=== PATIENT | female | born 2000 | race African-American/Black ===

== ENCOUNTER 2019-11-04 18:58 | Observation (INO) | payer BC, SELFPAY ==
--- NOTE | ~2019-11-04 | MR_ITS ---
EXAMINATION: MR abdomen wo con DATE: 11/05/2019 09:45 INDICATION: Right flank and lower abdominal pain during 24th ventricle . TECHNIQUE: Magnetic resonance imaging (MRI) of the abdomen was performed without intravenous contrast . Sequences included axial, sagittal and coronal FS 2D-FIESTA, axial and coronal T2-weighted SS-FSE, axial STIR FSE, sagittal T2-weighted FS SS-FSE, axial dual-echo T1-weighted FSPGR, and axial T1-weigh ceferino LAVA. COMPARISON: None. FINDINGS: No pleural effusion at the posterior sulci. Visualized portions of the upper and spleen are normal. T he gallbladder, pancreas and bilateral adrenal glands are normal. Bilateral kidneys are normal with n o hydronephrosis. The appendix is normal with no periappendiceal inflammatory stranding to suggest ac chilkoot appendicitis. No bowel obstruction. Gravid uterus with anterior placenta which is not low-lying w ith caudal margin 7.6 cm from the internal cervical os. Cervical length measures 3.4 cm which is norm al. Fetus which is not diagnostically evaluated but appears normal in vertex position. The partially decompressed bladder is normal. No free intraperitoneal fluid. No pathologically enlarged abdominal o r pelvic lymphadenopathy. Mild lumbar levocurvature. Bones are otherwise unremarkable with normal mar row signal throughout. Small fat-containing umbilical hernia. IMPRESSION: 1. Normal appendix. No hydronephrosis or other evident acute intra-abdominal/pelvic process. 2. Gravid uterus with fetus in vertex position. 3. Small fat-containing umbilical hernia. Reviewed, dictated and finalized at location A. IMPRESSION: 1. Normal appendix. No hydronephrosis or other evident acute intra-abdominal/pe lvic process. 2. Gravid uterus with fetus in vertex position. 3. Small fat-containing umbilical hernia.
[2019-11-04 19:12] VITALS: BP 135/75; PULSE 106; RESP 18; TEMP 37; O2SAT 100
[2019-11-04 19:26] LABS: Basophils Percent Auto 0.2 % (0.2-1.2); Eosinophils Absolute Auto 0.1 K/mm3 (0-0.3); Eosinophils Percent Auto 0.7 % (0-4.4); Hematocrit 32.9 % (37.0-47.0); Hemoglobin 11.1 g/dL (12.0-15.0); Immature Granulocyte Absolute 0.06 K/mm3 (0.00-0.031); Immature Granulocyte Percent A 0.4 % (0-0.5); Lymphocytes Absolute Auto 2.91 K/mm3 (0.9-3.2); Lymphocytes Percent Auto 20.6 % (18.3-44.2); Mean Corpuscular HGB Conc 33.7 g/dl (32-36); Mean Corpuscular Hemoglobin 29.4 pg (26-34); Mean Platelet Volume 12.2 fl (7.4-10.4); Monocytes Absolute Auto 1.1 K/mm3 (0.1-0.6); Monocytes Percent Auto 7.4 % (2.6-8.5); Neutrophils Percent Auto 70.7 % (45.5-73.1); Platelet Count Result 200 k/mm3 (150-375); Red Blood Count 3.78 M/mm3 (4.2-5.4); Red Cell Distribution Width 13.2 % (11.5-14.5); White Blood Count 14.1 K/mm3 (4.5-10.0)
[2019-11-04 19:37] LABS: Blood Urea Nitrogen 4 mg/dL (7-17); Calcium 8.8 mg/dL (8.4-10.2); Carbon Dioxide 21 mmol/L (22-30); Chloride 107 mmol/L (98-107); Estimated Glomerular Filt Rate > 60; Glucose 106 mg/dL (65-105); Potassium 3.5 mmol/L (3.4-5.0); Sodium 134 mmol/L (137-145)
[2019-11-04 19:40] LABS: Ovalocytes 1+ (NORMAL); Platelet Estimate Adequate (Adequate)
[2019-11-04 19:45] LABS: Add Urine Microscopic? YES; Appearance Urine Cloudy (Clear); Bacteria Urine Trace /hpf; Bilirubin Urine Negative (Negative); Color Urine Yellow (Yellow); Glucose Urine UA Negative (Negative); Ketones Urine Negative (Negative); Leukocyte Esterase Ur 2+ LEU/UL (Negative); Mucus Urine Few /lpf; Nitrate Urine Negative (Negative); Protein Urine 1+ mg/dL (Negative); RBC Urine 0-2 /hpf (0-2); Specific Grav Ur 1.027 (1.001-1.035); Squamous Epithelial Cell Urine Many /hpf (Few)
[2019-11-04 19:46] LABS: Blood Urine Negative (Negative)
[2019-11-04 20:12] LABS: Alanine Aminotransferase 21 U/L (4-35); Albumin Level 3.6 g/dL (3.5-5.1); Alkaline Phosphatase 88 U/L (38-126); Aspartate Amino Transferase 26 U/L (14-36); Bilirubin,Total 0.2 mg/dL (0.2-1.3); Lipase 114 U/L (23-300)
--- NOTE | 2019-11-04 22:24 | PC.NURSE ---
Spoke with OB at 2223 due to Pt being passed 20wks gestation, nurse states someone will be down to assess heart tones.
[2019-11-04 22:44] VITALS: BP 125/75; PULSE 89; RESP 20; O2SAT 100
--- NOTE | 2019-11-04 23:24 | ED.ABDPAIN ---
HPI - Abdominal Pain General Chief Complaint: Abdominal Pain Stated Complaint: right flank pain; 24 wks gestation Time Seen by Provider: 11/04/19 22:53 Source: patient Mode of arrival: ambulatory Limitations: no limitations History of Present Illness HPI narrative: This patient is a 18 year old female who is GA 24 weeks who presents for evaluation of right flank pain. She states she has had intermittent right flank pain x 2 weeks . This morning she developed severe pain to right flank that has been constant. she reports this pain feels different. She took tylenol 1000 mg at 11 am without any relief. She denies nausea, vomiting, fever, chills or urinary complaints. MD elicited complaint: flank pain Related Data Allergies Allergy/AdvReac Type Severity Reaction Status Date / Time No Known Allergies Allergy Verified 11/05/19 00:13 Review of Systems Review of Systems: All systems reviewed & are unremarkable except as noted in HPI and below Constitutional: Constitutional: Denies chills and Denies fever(s) Cardiovascular: Cardiovascular: Denies chest pain Respiratory: Respiratory: Denies cough and Denies dyspnea Gastrointestinal: Gastrointestinal: Denies diarrhea, Denies nausea and Denies vomiting Genitourinary: Genitourinary: Denies hematuria, Denies dysuria and Reports flank pain Musculoskeletal: Musculoskeletal: Denies back pain [facility] Past Medical History Medical History (Updated 11/05/19 @ 05:38 by Anabelle Shafer MD) Patient denies medical problems Surgical History Surgical History (Updated 11/04/19 @ 23:24 by Anabelle Shafer MD) No significant past surgical history Social History Social History Gender identity (if verbalized by the patient): Female Exam Const: General: alert Orientation/consciousness: patient oriented x3 Eyes: EOM: EOMs intact bilaterally Chest: Chest palpation & inspection: normal inspection of the chest Resp: Effort & Inspection: normal respiratory effort and no retractions Auscultation: clear to auscultation bilaterally Cardio: Rate: regular rate Rhythm: regular rhythm Heart sounds: no murmurs GI: GI Palp: Yes Soft to palpation, Yes Tenderness to palpation present (GI) (right lower flank and RLQ), No Guarding due to palpation present (GI) and No Rigid due to palpation Other: gravid : General: Yes no CVA tenderness Back/Spine/Pelvis: Back: no CVA tenderness Skin: Rashes: no rashes Neuro: General: patient oriented x3 and moves all extremities Course Consultations Consultation #1: I spoke with Dr. Fabian who agrees to admit patient to Labor and deliver for evaluation . He agrees with antibiotics for UTI and MRI in am to rule out appy given elevated wbc Date: 11/04/19 Time: 23:45 Vital Signs Vital signs: Vital Signs Temperature 98.6 F 11/04/19 19:12 Pulse Rate 106 H 11/04/19 19:12 Respiratory Rate 18 11/04/19 19:12 Blood Pressure 135/75 11/04/19 19:12 Pulse Oximetry 100 11/04/19 19:12 Temperature 98.6 F 11/04/19 19:12 Pulse Rate 100 11/05/19 02:04 Respiratory Rate 20 11/05/19 02:04 Blood Pressure 122/65 11/05/19 02:04 Pulse Oximetry 95 11/05/19 02:04 MDM - Abdominal Pain Lab Data Attestation: I reviewed the patient's lab results. Result diagrams: 11/04/19 19:19 11/04/19 19:19 Labs: Lab Results 11/04/19 11/04/19 11/04/19 Range/Units 19:19 19:19 19:19 WBC 14.1 H (4.5-10.0) K/mm3 RBC 3.78 L (4.2-5.4) M/mm3 Hgb 11.1 L (12.0-15.0) g/dL Hct 32.9 L (37.0-47.0) % MCV 87.0 (80-100) fl MCH 29.4 (26-34) pg MCHC 33.7 (32-36) g/dl RDW 13.2 (11.5-14.5) % Plt Count 200 (150-375) k/mm3 MPV 12.2 H (7.4-10.4) fl Immature Gran % (Auto) 0.4 (0-0.5) % Neut % (Auto) 70.7 (45.5-73.1) % Lymph % (Auto) 20.6 (18.3-44.2) % [place] % (Auto) 7.4 (2.6-8.5) % Eos % (Auto) 0.7 (0-4.4) % Baso % (Auto) 0.2
[2019-11-04 23:54] VITALS: BP 122/65; PULSE 95; RESP 20; O2SAT 100
[2019-11-05] MEDS: LACTATED RINGERS 1,000 ML 999 ML IV CONT (00:30)
[2019-11-05 00:53] VITALS: BP 129/65; PULSE 90
[2019-11-05 02:04] VITALS: BP 122/65; PULSE 100; RESP 20; O2SAT 95
[2019-11-05] MEDS: Please add drug allergy info to patient profile. 1 EACH XX (02:08)
[2019-11-05 06:27] VITALS: BP 107/71; PULSE 94
[2019-11-05 06:30] VITALS: TEMP 36.8
[2019-11-05 06:38] LABS: Basophils Percent Auto 0.3 % (0.2-1.2); Eosinophils Absolute Auto 0.1 K/mm3 (0-0.3); Hematocrit 32.6 % (37.0-47.0); Hemoglobin 10.8 g/dL (12.0-15.0); Immature Granulocyte Absolute 0.07 K/mm3 (0.00-0.031); Immature Granulocyte Percent A 0.6 % (0-0.5); Lymphocytes Absolute Auto 2.38 K/mm3 (0.9-3.2); Lymphocytes Percent Auto 20.6 % (18.3-44.2); Mean Corpuscular HGB Conc 33.1 g/dl (32-36); Mean Corpuscular Hemoglobin 29.2 pg (26-34); Mean Corpuscular Volume 88.1 fl (80-100); Mean Platelet Volume 12.2 fl (7.4-10.4); Monocytes Absolute Auto 0.9 K/mm3 (0.1-0.6); Monocytes Percent Auto 7.4 % (2.6-8.5); Neutrophils Absolute Auto 8.1 K/mm3 (1.3-6.7); Neutrophils Percent Auto 70.1 % (45.5-73.1); Platelet Count Result 187 k/mm3 (150-375); Red Cell Distribution Width 13.3 % (11.5-14.5); White Blood Count 11.6 K/mm3 (4.5-10.0)
[2019-11-05 07:00] LABS: Alanine Aminotransferase 19 U/L (4-35); Albumin Level 3.3 g/dL (3.5-5.1); Alkaline Phosphatase 78 U/L (38-126); Aspartate Amino Transferase 24 U/L (14-36); Bilirubin,Total 0.2 mg/dL (0.2-1.3); Blood Urea Nitrogen 4 mg/dL (7-17); Calcium 8.7 mg/dL (8.4-10.2); Carbon Dioxide 22 mmol/L (22-30); Chloride 107 mmol/L (98-107); Estimated Glomerular Filt Rate > 60; Glucose 94 mg/dL (65-105); Potassium 3.6 mmol/L (3.4-5.0); Sodium 133 mmol/L (137-145)
[2019-11-05 07:34] VITALS: PULSE 100; O2SAT 99
[2019-11-05 07:40] VITALS: BMI 42.0
--- NOTE | 2019-11-05 07:40 | PM.IMHP ---
H&P: HPI History of Present Illness Chief complaint: right flank pain, UTI Narrative: Maile Szymanski is a 18 year old female 1 at 24 weeks gestation who presented to the emergency department with right flank pain. The pain is intermittent. It is worse when she takes a deep breath. She denies any shortness of breath. She denies any anxiety. Pain is provoked with movement. She rates at a 7/10. Nothing is palliative. Movement and inspiration is provocative. She denies any nausea, vomiting, fever, chills. She denies any urgency, frequency, dysuria. Review of Systems Constitutional: Constitutional: Reports no additional constitutional complaints, Denies fatigue, Denies headache(s), Denies lethargy and Denies weakness Eyes: Eyes: Reports no additional eye complaints, Denies blurry vision and Denies photophobia ENT: Reports as per HPI, Denies headache(s) and Denies neck pain Cardiovascular: Cardiovascular: Denies chest pain, Denies diaphoresis, Denies leg edema, Denies palpitations and Denies dyspnea Respiratory: Respiratory: Denies hemoptysis, Denies dyspnea and Denies wheezing Gastrointestinal: Gastrointestinal: Denies abdominal pain, Denies melena, Denies bloating, Denies hematochezia, Denies nausea and Denies vomiting Genitourinary: Genitourinary: Reports no additional female genitourinary complaints Musculoskeletal: Musculoskeletal: Denies joint swelling, Denies neck pain, Denies numbness and Denies stiffness Neurologic: Denies Abnormal speech present, Denies confusion, Denies headache(s), Denies numbness and Denies weakness Psychiatric: Psychiatric: Denies anxiety, Denies confusion, Denies depression, Denies homicidal ideation and Denies suicidal ideation Endocrine: Endocrine: Denies fatigue and Denies palpitations Allergic/Immunologic: Allergic/Immunologic: Denies wheezing PMFSH Past Medical History Medical History (Updated 11/05/19 @ 07:43 by Aníbal Fabian MD) Patient denies medical problems Surgical History Surgical History (Updated 11/04/19 @ 23:24 by Anabelle Shafer MD) No significant past surgical history Social History Social History Gender identity (if verbalized by the patient): Female Meds Home Medications and Allergies Allergies Allergy/AdvReac Type Severity Reaction Status Date / Time No Known Allergies Allergy Verified 11/05/19 00:13 Vital Signs Vital Signs - 24 hr 11/04/19 19:12 11/04/19 22:44 11/04/19 23:54 Temperature 98.6 F Pulse Rate 106 H 89 95 Respiratory Rate 18 20 20 Blood Pressure 135/75 125/75 122/65 Pulse Oximetry 100 100 100 11/05/19 00:53 11/05/19 02:04 11/05/19 06:27 Temperature Pulse Rate 90 100 94 Respiratory Rate 20 Blood Pressure 129/65 122/65 107/71 Pulse Oximetry 95 11/05/19 06:30 11/05/19 07:34 Temperature 98.2 F Pulse Rate Respiratory Rate Blood Pressure Pulse Oximetry 99 Exam Const: General: healthy appearing, comfortable and no acute distress; No confusion Orientation/consciousness: No confusion Eyes: Direct Ophthalmoscopy: No photophobia Resp: Auscultation: clear to auscultation bilaterally, no rales, no rhonchi and no wheezes Cardio: Rate: regular rate Heart sounds: no click, no murmurs and no rubs GI: Inspection: non-distended GI Palp: No abdominal tenderness Auscultation: normal bowel sounds Neuro: General: No confusion Speech: No Abnormal speech present Extrem: General: normal to inspection, no pedal edema and no calf tenderness H&P: Results Labs Labs: Short CBC 11/04/19 11/05/19 Range/Units 19:19 06:27 WBC 14.1 H 11.6 H (4.5-10.0) K/mm3 Hgb 11.1 L 10.8 L (12.0-15.0) g/dL Hct 32.9 L 32.6 L (37.0-47.0) % Plt Count 200 187 (150-375) k/mm3 [facility] 11/04/19 11/05/19 19:19 06:27 Sodium 134 L 133 L Potassium 3.5 3.6 Chloride 107 107 Carbon Dioxide 21 L 22 BUN 4 L 4 L Creatinine 0.50 L 0.40 L Glucose 106 H 94 Calcium 8.8 8.7
--- NOTE | 2019-11-05 08:39 | PC.NURSE ---
Pt down in US.
--- NOTE | 2019-11-05 08:39 | PC.NURSE ---
0735- at bedside to assess pt, plan to continue with MRI.
--- NOTE | 2019-11-05 10:13 | PC.NURSE ---
0955-Pt back from MRI
[2019-11-05 10:45] VITALS: TEMP 36.6
--- NOTE | 2019-11-05 13:02 | PC.NURSE ---
2578- called, read MRI results and informed pt states she is feeling better. Order received to discharge pt home
== END 2019-11-05 13:02 | disposition home or self-care (01) ==
LOC: ANHED 23:49 → ANHOBPP 11-05 00:46
PROVIDERS: Emergency Medicine; Admitting Provider Obstetrics & Gynecology; Emergency Provider General Practice; Visit Provider Obstetrics & Gynecology
DX: O23.42 Unspecified infection of urinary tract in pregnancy, second trimester (principal); Z3A.24 24 weeks gestation of pregnancy
CPT/HCPCS: 36415; 74181; 80048; 80053; 80076; 81001; 83690; 85025; 87086; 87088; 96374; 96375; 99285; G0378; G0379; J0131; J0696; J7120

== ENCOUNTER 2020-01-13 02:11 | Observation (INO) | payer BC, MEDICAID, SELFPAY ==
--- NOTE | 2020-01-13 02:11 | OBADM ---
This patient, Maile Szymanski, admitted to the OB room OB Post 117 for observation. Patient/family oriented to hospital policies and general routines including ID bracelet, bed and alarms, visiting hours, pain management, procedures, bathroom and other care routines, personal items, smoking policy, room service/diet, and visiting hours. Patient/Family are encouraged to report perceived risks to care and to ask questions if they do not understand what they are told or what they should do.
[2020-01-13 02:22] VITALS: BP 120/73; PULSE 102; RESP 20; TEMP 36.8
[2020-01-13 02:25] VITALS: BMI 42.8
[2020-01-13 02:30] VITALS: BP 122/82; PULSE 100
--- NOTE | 2020-01-21 14:13 | PM.OBTRLD ---
OB - Triage/Final Diagnosis Final Diagnosis (1) Pelvic pain affecting : Code(s): O26.899 - Other specified related conditions, unspecified trimester; R10.2 - Pelvic and perineal pain Status: Acute
== END 2020-01-13 03:09 | disposition home or self-care (01) ==
PROVIDERS: Admitting Provider Obstetrics & Gynecology; Visit Provider Obstetrics & Gynecology
DX: R10.2 Pelvic and perineal pain (principal); O26.893 Other specified pregnancy related conditions, third trimester; Z3A.34 34 weeks gestation of pregnancy
CPT/HCPCS: G0378; G0379

== ENCOUNTER 2020-02-02 16:45 | Observation (INO) | payer BC, MEDICAID, SELFPAY ==
[2020-02-02 16:57] VITALS: RESP 17; TEMP 36.7
[2020-02-02 17:00] VITALS: BMI 47.7
[2020-02-02 17:13] VITALS: BP 130/59; PULSE 90
--- NOTE | 2020-03-02 21:04 | PM.OBTRLD ---
OB - Triage/Final Diagnosis Final Diagnosis (1) Gestational HTN: Code(s): O13.9 - Gestational [-induced] hypertension without significant proteinuria, unspecified trimester Status: Acute
--- NOTE | 2020-03-05 07:18 | PM.OBTRLD ---
OB - Triage/Final Diagnosis Final Diagnosis (1) Gestational HTN: Code(s): O13.9 - Gestational [-induced] hypertension without significant proteinuria, unspecified trimester Status: Acute
== END 2020-02-02 17:27 | disposition home or self-care (01) ==
PROVIDERS: Admitting Provider Obstetrics & Gynecology; Visit Provider Obstetrics & Gynecology
DX: O13.3 Gestational [pregnancy-induced] hypertension without significant proteinuria, third trimester (principal); Z3A.37 37 weeks gestation of pregnancy
CPT/HCPCS: G0378; G0379

== ENCOUNTER 2020-02-04 09:21 | Inpatient (IN) | payer BC, MEDICAID, SELFPAY ==
[2020-02-04] VITALS (23 sets, daily range): BP systolic 124–153; BP diastolic 71–93; PULSE 78–108; TEMP 36.2–36.6; BMI 46.2
[2020-02-04] MEDS: DINOPROSTONE 10 MG VAG INSERT VAGINAL (10:43)
[2020-02-04 10:57] LABS: Basophils Percent Auto 0.3 % (0.2-1.2); Eosinophils Absolute Auto 0.1 K/mm3 (0-0.3); Eosinophils Percent Auto 0.6 % (0-4.4); Hematocrit 32.1 % (37.0-47.0); Hemoglobin 10.8 g/dL (12.0-15.0); Immature Granulocyte Absolute 0.02 K/mm3 (0.00-0.031); Immature Granulocyte Percent A 0.2 % (0-0.5); Immature Platelet Fraction Pct 24.7 % (0.9-11.2); Lymphocytes Absolute Auto 2.11 K/mm3 (0.9-3.2); Lymphocytes Percent Auto 22.8 % (18.3-44.2); Mean Corpuscular HGB Conc 33.6 g/dl (32-36); Mean Corpuscular Hemoglobin 28.8 pg (26-34); Mean Corpuscular Volume 85.6 fl (80-100); Monocytes Absolute Auto 0.7 K/mm3 (0.1-0.6); Neutrophils Absolute Auto 6.3 K/mm3 (1.3-6.7); Neutrophils Percent Auto 68.1 % (45.5-73.1); Platelet Count Result 138 k/mm3 (150-375); Red Blood Count 3.75 M/mm3 (4.2-5.4); Red Cell Distribution Width 14.7 % (11.5-14.5); White Blood Count 9.3 K/mm3 (4.5-10.0)
--- NOTE | 2020-02-04 10:57 | LDADM ---
This patient, Maile Szymanski, was admitted to Labor/Delivery/Recovery 104 on 02/04/20 at 09:21. Plans for labor, pain management and were discussed with patient. Patient/family oriented to hospital policies and general routines including ID bracelet, bed and alarms, visiting hours, pain management, procedures, bathroom and other care routines, personal items, smoking policy, room service/diet and guest tray routines, infant security routines, and visiting hours. Patient/Family are encouraged to report perceived risks to care and to ask questions if they do not understand what they are told or what they should do. See OBIX for further documentation.
[2020-02-04 11:08] LABS: Large Platelets Present; Platelet Estimate Adequate (Adequate)
[2020-02-04 11:09] LABS: Alanine Aminotransferase 10 U/L (4-35); Albumin Level 3.1 g/dL (3.5-5.1); Alkaline Phosphatase 186 U/L (38-126); Anion Gap 8 mmol/L (8-16); Aspartate Amino Transferase 21 U/L (14-36); Bilirubin,Total 0.4 mg/dL (0.2-1.3); Blood Urea Nitrogen 7 mg/dL (7-17); Calcium 9.3 mg/dL (8.4-10.2); Carbon Dioxide 22 mmol/L (22-30); Chloride 107 mmol/L (98-107); Estimated CRCL calculation 174 ml/min; Estimated Glomerular Filt Rate > 60; Glucose 93 mg/dL (65-105); Potassium 3.6 mmol/L (3.4-5.0); Sodium 137 mmol/L (137-145); Uric Acid 6.3 mg/dL (2.5-7.5)
--- NOTE | 2020-02-04 11:15 | PM.IMHP ---
H&P: HPI History of Present Illness Date/Time: 02/04/20 11:15 Chief complaint: Induction of Labor Narrative: Maile Szymanski is a 19 year old female who presents with elevated bp documented x 2 in office plan MIL Review of Systems Review of Systems: All systems reviewed & are unremarkable except as noted in HPI and below PMFSH Past Medical History Medical History (Updated 02/04/20 @ 11:16 by Nova Chapa CNM) Patient denies medical problems Surgical History Surgical History (System 02/03/20 @ 12:56 by Aline Dixon) No significant past surgical history Family History Family History (System 02/03/20 @ 12:56 by Aline Dixon) Mother Bronchitis Asthma Social History Social History (System 02/03/20 @ 12:56 by Aline Dixon) Smoking status: Never smoker Substance use: never Gender identity (if verbalized by the patient): Female Spiritual care concerns: No Meds Home Medications and Allergies Home Medications Medication Instructions Recorded Confirmed Type 400 mcg PO DAILY 01/13/20 02/04/20 History Allergies Allergy/AdvReac Type Severity Reaction Status Date / Time No Known Allergies Allergy Verified 02/03/20 12:56 Vital Signs Vital Signs - 24 hr 02/04/20 09:41 02/04/20 09:46 02/04/20 10:01 Temperature Pulse Rate 108 H 98 93 Blood Pressure 135/87 153/79 H 143/87 H 02/04/20 10:15 02/04/20 10:16 02/04/20 10:31 Temperature 36.6 C Pulse Rate 86 83 Blood Pressure 141/83 H 145/88 H 02/04/20 10:46 02/04/20 11:01 Temperature Pulse Rate 85 84 Blood Pressure 146/84 H 141/83 H Exam Const: General: cooperative Limitations: no limitations H&P: Results Labs Labs: Short CBC 02/04/20 Range/Units 10:22 WBC 9.3 (4.5-10.0) K/mm3 Hgb 10.8 L (12.0-15.0) g/dL Hct 32.1 L (37.0-47.0) % Plt Count 138 L (150-375) k/mm3 BMP 02/04/20 10:35 Sodium 137 Potassium 3.6 Chloride 107 Carbon Dioxide 22 BUN 7 Creatinine 0.60 L Glucose 93 Calcium 9.3 Liver Function 02/04/20 Range/Units 10:35 Total Bilirubin 0.4 (0.2-1.3) mg/dL AST 21 (14-36) U/L ALT 10 (4-35) U/L Alkaline Phosphatase 186 H (38-126) U/L Albumin 3.1 L (3.5-5.1) g/dL Assessment and Plan Assessment and plan (1) Gestational HTN: Code(s): O13.9 - Gestational [-induced] hypertension without significant proteinuria, unspecified trimester Status: Acute Additional Plan MIL due to GHTN cervadil placed per rn
[2020-02-04] MEDS: ACETAMINOPHEN 500 MG TABLET 1000 MG PO (15:42)
[2020-02-04] MEDS: fentaNYL CITRATE INJ (*CRX) 100 MCG/2 ML VIAL 50 MCG IV PUSH (22:58)
[2020-02-04] MEDS: LACTATED RINGERS 1,000 ML 125 ML IV CONT (23:24)
[2020-02-04] MEDS: OXYTOCIN 30 UNITS/NS 500 ML 30 UNITS/500 ML BAG 6 UNITS IV CONT (23:24)
[2020-02-05] VITALS (142 sets, daily range): BP systolic 103–157; BP diastolic 65–107; PULSE 77–122; RESP 16–18; TEMP 36.4–36.8; O2SAT 96–100
[2020-02-05] MEDS: fentaNYL CITRATE INJ (*CRX) 100 MCG/2 ML VIAL IV PUSH (00:02)
--- NOTE | 2020-02-05 00:54 | WPDANESEPPF ---
Anes - Initial Pre Proc Eval Procedure: labor epidural Date/Time: 02/05/20 00:54 Surgeon: Aníbal Fabian MD Pre Op Diagnosis: labor pain Pre Op Diagnosis: Induction of Labor Patient Data Age: 19 Gender: F Height: 1.68 m Weight: 130 kg Last Vital Signs Temp 36.2 C L 02/04/20 23:00 Pulse 93 02/05/20 00:53 BP 152/82 H 02/05/20 00:53 Pulse Ox 100 02/05/20 00:50 Allergies Allergy/AdvReac Type Severity Reaction Status Date / Time No Known Allergies Allergy Verified 02/03/20 12:56 Home Medications Medication Instructions Recorded Confirmed Type 400 mcg PO DAILY 01/13/20 02/04/20 History Laboratory Tests 02/04/20 02/04/20 02/04/20 10:22 10:22 10:22 WBC 9.3 K/mm3 K/mm3 (4.5-10.0) RBC 3.75 M/mm3 L M/mm3 (4.2-5.4) Hgb 10.8 g/dL L g/dL (12.0-15.0) Hct 32.1 % L % (37.0-47.0) MCV 85.6 fl fl (80-100) MCH 28.8 pg pg (26-34) MCHC 33.6 g/dl g/dl (32-36) RDW 14.7 % H % (11.5-14.5) Plt Count 138 k/mm3 L k/mm3 (150-375) MPV TNP Immature Gran % (Auto) 0.2 % % (0-0.5) Neut % (Auto) 68.1 % % (45.5-73.1) Lymph % (Auto) 22.8 % % (18.3-44.2) [place] % (Auto) 8.0 % % (2.6-8.5) Eos % (Auto) 0.6 % % (0-4.4) Baso % (Auto) 0.3 % % (0.2-1.2) Lymph # (Auto) 2.11 K/mm3 K/mm3 (0.9-3.2) [place] # (Auto) 0.7 K/mm3 H K/mm3 (0.1-0.6) Eos # (Auto) 0.1 K/mm3 K/mm3 (0-0.3) Baso # (Auto) 0.0 K/mm3 K/mm3 (0.0-0.1) Abs Immat Gran (auto) 0.02 K/mm3 K/mm3 (0.00-0.031) Absolute Neuts (auto) 6.3 K/mm3 K/mm3 (1.3-6.7) Absolute Nucleated RBC 0.0 K/mm3 K/mm3 (0.0-0.012) Nucleated RBC % 0.0 % % (0.0-0.2) Platelet Estimate Adequate (Adequate) Large Platelets Present % Immature Plt Fraction 24.7 % H % (0.9-11.2) Sodium Potassium Chloride Carbon Dioxide Anion Gap BUN Creatinine Estim Creat Clear Calc Estimated GFR Glucose Uric Acid Calcium Total Bilirubin AST ALT Alkaline Phosphatase Total Protein Albumin RPR Pending Blood Type O Positive Antibody Screen Negative 02/04/20 10:35 WBC RBC Hgb Hct MCV MCH MCHC RDW Plt Count MPV Immature Gran % (Auto) Neut % (Auto) Lymph % (Auto) [place] % (Auto) Eos % (Auto) Baso % (Auto) Lymph # (Auto) [place] # (Auto) Eos # (Auto) Baso # (Auto) Abs Immat Gran (auto) Absolute Neuts (auto) Absolute Nucleated RBC Nucleated RBC % Platelet Estimate Large Platelets % Immature Plt Fraction Sodium 137 mmol/L mmol/L (137-145) Potassium 3.6 mmol/L mmol/L (3.4-5.0) Chloride 107 mmol/L mmol/L (98-107) Carbon Dioxide 22 mmol/L mmol/L (22-30) Anion Gap 8 mmol/L mmol/L (8-16) BUN 7 mg/dL mg/dL (7-17) Creatinine 0.60 mg/dL L mg/dL (0.7-1.0) Estim Creat Clear Calc 174 ml/min ml/min Estimated GFR > 60 (59 - ) Glucose 93 mg/dL mg/dL (65-105) Uric Acid 6.3 mg/dL mg/dL (2.5-7.5) Calcium 9.3 mg/dL mg/dL (8.4-10.2) Total Bilirubin 0.4 mg/dL mg/dL (0.2-1.3) AST 21 U/L U/L (14-36) ALT 10 U/L U/L (4-35) Alkaline Phosphatase 186 U/L H U/L (38-126) Total Protein 6.0 g/dL L g/dL (6.3-8.2) Albumin 3.1 g/dL L g/dL (3.5-5.1) RPR Blood Type Antibody Screen Patient hx anesthesia problems: none Family hx anesthesia problems: none PMFSH Past Medical History M
[2020-02-05] MEDS: LACTATED RINGERS 1,000 ML 125 ML IV CONT (03:17)
[2020-02-05 07:24] LABS: Rapid Plasma Reagin Non-Reactive (NonReactive)
--- NOTE | 2020-02-05 11:31 | PM.OBPRVD ---
OB - Delivery Note Procedure Delivery date: 02/05/20 events: Induced HTN Intrapartal events: None Induction method: per pitocin protocol and other (cervidil) Route of delivery: Laceration description: Vaginal - 1st Degree Estimated blood loss (mL): 124 Anesthesia type: Epidural Baby Date of : 02/05/20 Time of : 11:01 Weeks of gestation at delivery: 37 Weight (pounds): 5 Weight (ounces): 13 presentation: vertex position: Right Occiput Anterior Placenta delivery description: Spontaneous score one minute: 9 score five minutes: 9 Narrative: Mother and baby in stable condition. Cord gasses collected and handed off to nursery staff.
[2020-02-05] MEDS: OXYTOCIN 30 UNITS/NS 500 ML 30 UNITS/500 ML BAG 125 UNITS IV CONT (11:36)
--- NOTE | 2020-02-05 12:00 | PC.NURSE ---
Nursery RN called for assist with latch. Mother has been attempting latch for 30 minutes. Reviewed positioning/alignment in football, holding breast in C hold and guided asymmetrical latch on. Several attempt made, infant tends to suck her tongue and not drop to allow for correct latch. Attempt for 5-10 minutes. Mother reports she is tired and would like to have a bottle this feeding. Discussed attempting each feeding, if does not latch pumping should be initiated to stimulate milk supply. Mother v/u. to nursery RN.
[2020-02-05] MEDS: IBUPROFEN 600 MG TABLET PO ×2 (12:32→18:07)
[2020-02-05] MEDS: BENZOCAINE 20% AER SPR (*SP) 56 GM CAN 1 SPRAY TOPICAL (12:33)
[2020-02-05] MEDS: WITCH HAZEL 40 PADS 1 PAD TOPICAL (12:33)
[2020-02-05] MEDS: ONDANSETRON INJ 4 MG/2 ML VIAL IV PUSH (13:03)
--- NOTE | 2020-02-05 14:07 | PC.NURSE ---
PT arrived on unit via wheelchair accompanied by significant other and infant and taken to room 290. PT oriented to room and surrounding area. PT introductions made and plan of care discussed per post , pain management, breast feeding, daily care activities. Welcome packet reviewed and discussed. PT verbalized understanding of such care.
[2020-02-05] MEDS: ACETAMINOPHEN 325 MG TABLET 650 MG PO (18:08)
[2020-02-05] MEDS: DOCUSATE SODIUM 100 MG CAPSULE PO (18:08)
[2020-02-06] MEDS: ACETAMINOPHEN 325 MG TABLET 650 MG PO ×2 (00:04→15:48)
[2020-02-06] MEDS: IBUPROFEN 600 MG TABLET PO ×3 (00:04→15:49)
[2020-02-06 06:01] LABS: Hematocrit 28.3 % (37.0-47.0); Hemoglobin 8.9 g/dL (12.0-15.0)
[2020-02-06 07:51] LABS: Immature Platelet Fraction Pct 21.8 % (0.9-11.2); Platelet Count Result 121 k/mm3 (150-375)
--- NOTE | 2020-02-06 07:52 | PM.OBPNVD ---
OB - PN: Subj Subjective Date/time seen: 02/06/20 07:52 Patient comments: no complaints baby status: doing well OB - PN: Obj Data Labs CBC & Chem 7: 02/06/20 04:11 02/04/20 10:35 Labs: Laboratory Results - last 24 hr 02/06/20 04:11 Hgb 8.9 L Hct 28.3 L OB - PN A/P Plan day: 1 Plan: routine care Comments: Recheck platelets. Time Spent With Patient Time: Total time spent is greater than 50% in coordination of care (as documented) at patient's floor/unit and/or counseling patient: Time with patient: less than 15 minutes Review of Systems Review of Systems: All systems reviewed & are unremarkable except as noted in HPI and below Exam Narrative: Exam Narrative: Fundus firm and vaginal flow controlled. No lower ext redness, warmth, or edema. Negative homans. Denies h/a, v/d or e/p. Reflexes normal. Const: General: comfortable Chest: Breast/axilla inspection: normal inspection of the breasts Resp: Effort & Inspection: normal respiratory effort Cardio: Rate: regular rate GI: GI Palp: Yes Soft to palpation Psych: Appearance: grossly normal Affect: normal affect Attitude: cooperative Thought content: Yes Normal thought content present Judgement: Good judgement present (Psych)
[2020-02-06 08:00] VITALS: PULSE 92; RESP 16; O2SAT 100
[2020-02-06 08:05] VITALS: BP 142/92; PULSE 92; RESP 16; TEMP 36.8; O2SAT 100
[2020-02-06] MEDS: POLYSACCHARIDE IRON COMPLEX 150 MG CAPSULE PO ×2 (09:32→16:20)
[2020-02-06] MEDS: MULTIVIT/MIN/PREN/FOL AC/IRON TABLET 1 TAB PO (09:32)
[2020-02-06] MEDS: DOCUSATE SODIUM 100 MG CAPSULE PO ×2 (09:32→16:21)
--- NOTE | 2020-02-06 11:00 | PC.NURSE ---
Consult with pt., mother reports she had been bottle feeding and pumping. Mother reports she is not pumping regularly, as she is not getting anything. Reviewed stimulation and milk supply, advising to pump every three hours for 15 minutes. Instructions given breast pump care and usage, pumping schedule, nipple care, and collection and storage of breast milk. Encouraged [id number], breast massage and manual expression to stimulate supply. Pumping log provided and reviewed. Assessed patient for correct flange size, placement and draw. Patient verbalizes and demonstrates understanding of instructions.
[2020-02-06 19:45] VITALS: BP 140/88; PULSE 98; RESP 18; TEMP 36.9
[2020-02-07] MEDS: IBUPROFEN 600 MG TABLET PO (05:31)
[2020-02-07] MEDS: ACETAMINOPHEN 325 MG TABLET 650 MG PO (05:31)
[2020-02-07 07:35] VITALS: BP 135/85; PULSE 82; RESP 18; TEMP 36.6; O2SAT 100
--- NOTE | 2020-02-07 07:51 | PM.OBPNVD ---
OB - PN: Subj Subjective Date/time seen: 02/07/20 07:51 Patient comments: no complaints baby status: doing well OB - PN: Obj Data Labs CBC & Chem 7: 02/06/20 07:44 02/04/20 10:35 Labs: Laboratory Results - last 24 hr 02/06/20 07:44 Plt Count 121 L MPV TNP % Immature Plt Fraction 21.8 H OB - PN A/P Plan day: 2 Plan: discharge home Time Spent With Patient Time: Total time spent is greater than 50% in coordination of care (as documented) at patient's floor/unit and/or counseling patient: Exam Const: General: cooperative Psych: Appearance: grossly normal Affect: normal affect Attitude: cooperative
[2020-02-07 08:46] VITALS: PULSE 82; RESP 18; O2SAT 100
--- NOTE | 2020-02-07 09:28 | PC.NURSE ---
Patient viewed the discharge video Mother & Baby Care, The First Two Weeks . Patient was given the opportunity and encouraged to ask questions. Patient verbalized understanding of information shared and has been given the mother/baby guide for home reference.
[2020-02-07] MEDS: POLYSACCHARIDE IRON COMPLEX 150 MG CAPSULE PO (09:44)
[2020-02-07] MEDS: MULTIVIT/MIN/PREN/FOL AC/IRON TABLET 1 TAB PO (09:44)
[2020-02-07] MEDS: DOCUSATE SODIUM 100 MG CAPSULE PO (09:44)
--- NOTE | 2020-02-07 10:00 | PC.NURSE ---
Mother states she continues to pump with little results. Assured mother within a few days an increase in milk should be seen with regular stimulation. Mother plans to continue with pumping and bottle feeding. Mother has a double electric pump for home use. Mother is feeding as required and waking infant to feed if needed. is currently meeting outcomes for weight, output, jaundice and feeding frequencies. Mother states she feels confident to continue effective at home. Reviewed transition to breast milk, signs of adequate intake, and engorgement/relief. Instructed to call ICP if intake/output less than required. Reviewed regular medications mother is taking. Information provided per Reta. Reviewed community resources on the [employer] website and in the Mom/Baby guide. Information on outpatient services provided. Mother has no further questions at this time.
[2020-02-08 11:24] VITALS: BP 136/89; PULSE 83; RESP 20; TEMP 37.3; O2SAT 100
--- NOTE | 2020-03-02 20:38 | PM.OBDSVD ---
DS: Admitting Diagnosis Admitting Diagnosis Admitting Diagnosis: Induction of Labor DS: Discharge Diagnosis Discharge Diagnosis (1) Vaginal delivery: Code(s): O80 - Encounter for full-term uncomplicated delivery Status: Acute OB - DS: Summary OB Procedures : PIH Mgmt OB Procedures Intrapartum: Spontaneous Vag Delivery OB Procedures: : None Time Spent with Patient Time attestation: Total time spent providing and/or coordinating discharge services: DS: Data Data Completed and Pending Completed studies during hospitalization: Pending at discharge 02/05/20 11:08 Surgical [PTH] Routine Discharge Plan Discharge Attending physician on discharge: Aníbal Fabian Consulting providers: Syl Curtis ; Nova Chapa ; Sukhdev Guaman Discharging Clinician: Nova Chapa Patient Disposition: Home, Self-Care Activity: pelvic rest Diet: regular Discharge Instructions: Education: Mom and Baby Guide Given to: Mother Follow-Up: Call your delivering provider's office for an appointment to be seen in: 1 Week Mom and baby should come to the [facility] for the follow-up appointment. Appointment Date/Time: Saturday, February 08, 2020 at 11:00 am What to expect at your follow-up visit: Blood Pressure Check Physical Assessment Call [phone] if you are unable to keep your appointment time. BREAST CARE: * Wear a snug supportive bra. * For engorgement discomfort: Breast Feeding: * Apply warm moist washcloths * Express milk as needed to relieve engorgement * Wear loose clothing Bottle Feeding: * May apply ice packs * For sore nipples: * Identify correct latch-on * Apply warm moist washcloths before and after nursing * Air dry nipples after nursing * May apply Lansinoh cream to nipples EPISIOTOMY/PERINEAL CARE: * Until bleeding stops, use your leonides bottle after urinating * Change your pad frequently throughout the day * You may take sitz baths several times a day (fill your bathtub with warm water and soak for 20 minutes.) Do NOT bathe in the water * No tub baths until seen by your physician - You may shower ACTIVITY: * Rest as much as possible. * Do not exercise or lift anything heavier than your baby (such as laundry or other children.) * Avoid stairs or driving as much as possible. * Do not put anything into the vagina. No douching, tampons, or sexual activity until seen by physician. NOTIFY PHYSICIAN IF YOU HAVE ANY QUESTIONS OR IF ANY OF THE FOLLOWING SYMPTOMS OCCUR: * If your perineum becomes red, swollen, or more painful than what you have experienced in the hospital. * If your vaginal bleeding becomes foul smelling. * If your vaginal bleeding becomes more heavy than a period or if your bleeding changes from pink to bright red. However, you may pass an occasional walnut-sized clot once or twice for the first week . * If you experience a sharp, shooting pain in you calves. * If you discover a hard, reddened area on your breast or if you experience flu-like symptoms. DIET: * Eat regular, well-balanced meals. * Drink plenty of fluids daily. If , drink to thirst. Stand Alone Forms: General Discharge Information Follow-up/Referrals: Syl Curtis CNM [Certified Nurse Cvir Tech] - 4 Weeks Discharge Medications: Continued 400 mcg Tablet,Chewable 400 mcg PO DAILY RF: 0 Date of admission: 02/04/20 09:21 Primary Care Provider: PHYSICIAN,GYM ATTENDANT Admitting Provider: Aníbal Fabian Attending physician on admission: Aníbal Fabian Condition: Stable
== END 2020-02-07 10:45 | disposition home or self-care (01) | DRG 807 ==
LOC: ANHLDR 02-05 00:56 → ANHOB2 02-05 14:17
PROVIDERS: Advanced Practice Midwife; Admitting Provider Obstetrics & Gynecology; Visit Provider Obstetrics & Gynecology
DX: O13.4 Gestational [pregnancy-induced] hypertension without significant proteinuria, complicating childbirth (principal); Z37.0 Single live birth; Z3A.37 37 weeks gestation of pregnancy; Z23 Encounter for immunization; O36.8330 Maternal care for abnormalities of the fetal heart rate or rhythm, third trimester, not applicable or unspecified; O70.0 First degree perineal laceration during delivery; O99.214 Obesity complicating childbirth; E66.01 Morbid (severe) obesity due to excess calories
CPT/HCPCS: 36415; 80053; 84550; 85014; 85018; 85025; 85049; 85055; 86592; 86850; 86900; 86901; 88307; 90471; 90653; A9270; G0008; J0131; J2405; J2590; J2795; J3010; J7120

== ENCOUNTER 2020-02-08 11:00 | Outpatient (CLI) | payer BC, MEDICAID, SELFPAY ==
[2020-02-08 11:53] LABS: Immature Platelet Fraction Pct 14.2 % (0.9-11.2); Platelet Count Result 199 k/mm3 (150-375)
== END 2020-02-08 12:00 | disposition home or self-care (01) ==
LOC: ANHOBOP 11:12 → ANHOBPP 11:12
PROVIDERS: Visit Provider Advanced Practice Midwife
DX: O13.9 Gestational [pregnancy-induced] hypertension without significant proteinuria, unspecified trimester (principal); Z3A.00 Weeks of gestation of pregnancy not specified
CPT/HCPCS: 36415; 85049; 85055; 99199

== ENCOUNTER 2023-07-13 15:28 | Emergency (ER) | payer OTHER, SELFPAY ==
--- NOTE | ~2023-07-13 | XR_ITS ---
EXAMINATION: XR chest 2V DATE: 07/13/2023 19:48 INDICATION: Chest pain TECHNIQUE: PA and lateral views of the chest are obtained. COMPARISON: 04/10/2019 FINDINGS: The lungs are free of acute opacities. No pleural effusion or pneumothorax. The cardiomedia stinal silhouette is normal. There is mild thoracic spondylosis. IMPRESSION: 1. No acute cardiopulmonary abnormality. Reviewed, dictated and finalized at location F.
--- NOTE | ~2023-07-13 | CT_ITS ---
EXAMINATION: CTA chest PE protocol DATE: 07/13/2023 21:02 INDICATION: Chest pain TECHNIQUE: Computed tomography angiography (CTA) of the chest was performed with 100 mL Omnipaque-350 intravenous contrast timed to evaluate the pulmonary arteries. Coronal maximum intensity projection 3D-reconstructions were created by the technologist. The dose-length product (DLP) was 911.89 mGy-cm. Automated exposure control and iterative reconstruction technique were employed. COMPARISON: None. FINDINGS: There is fair opacification of the pulmonary arteries. No central pulmonary embolus is iden tified. No pathologically enlarged thoracic lymph nodes are identified. The heart size is normal. The re is mild dependent atelectasis. No pleural effusion or pneumothorax. IMPRESSION: 1. No central pulmonary embolus identified. Reviewed, dictated and finalized at location F.
--- NOTE | 2023-07-13 15:29 | ECG_ITS ---
Measurements Intervals [place] Rate: 92 P: 42 AL: 138 QRS: 19 QRSD: 88 T: 14 QT: 326 QTc: 405 Interpretive Statements SINUS RHYTHM NONSPECIFIC ST-T WAVE ABNORMALITY- ANT/INF LEADS BASELINE WANDER- II, III, AVF BORDERLINE ECG NO PREVIOUS ECG AVAILABLE FOR COMPARISON Electronically Signed On 07-13-2023 15:54:58 CDT by Codey Osorio D.O.
[2023-07-13 15:30] VITALS: BP 124/71; PULSE 93; RESP 18; TEMP 36.3; O2SAT 100
--- NOTE | 2023-07-13 15:36 | ED.CHESTPAIN ---
HPI - Chest Pain General Chief Complaint: Chest Pain <ALLYSON Cadena Last Filed: 07/13/23 17:34> Stated Complaint: chest pain-sent by OB <ALLYSON Cadena Last Filed: 07/13/23 17:34> Time Seen by Provider: 07/13/23 15:36 <ALLYSON Cadena Last Filed: 07/13/23 17:34> Focused HPI: Patient is a 22-year-old female who presents the ED with report of chest pain. Patient reports having pain in her midsternal chest since around 10:00 a.m. this morning. States pain has been fairly constant since the onset, worse with deep breathing, turning/twisting. Patient also reports having mild SOB today, denies CONTRERAS. Denies pain or swelling in lower extremities. states she was advised to come to the ED by her OBGYN. Patient is currently 5.5 months . She notes history of preeclampsia with 1st . Denies issues with blood pressure during this . She does take aspirin 81 mg daily. Denies abdominal pain or vaginal bleeding. She is feeling baby move. Denies headache, lightheadedness, vision changes. OBGYN = Dr. Harvey GENERAL: Well-appearing, morbidly obese with BMI 45.2, and in no acute distress. HEAD: Normocephalic, atraumatic. CHEST: Clear to auscultation. ?No respiratory distress. HEART: Regular rate and rhythm.? MSK: Mild TTP along midsternal chest, slightly reproducing pain. ABD: Uterus gravid, abdomen nontender. NEURO: ?Alert and oriented x3. Patient screened in triage and initial orders placed.? ?Additional care and disposition to be based upon?diagnostic testing and treatment. <ALLYSON Cadena Last Filed: 07/13/23 17:34> Source: patient <ALLYSON Cadena Last Filed: 07/13/23 17:34> Mode of arrival: ambulatory <ALLYSON Cadena Last Filed: 07/13/23 17:34> Limitations: no limitations <ALLYSON Cadena Filed: 07/13/23 17:34> History of Present Illness HPI narrative: [age] old female that is approximately 5.5 months presenting to the emergency department for evaluation epigastric and sternal chest pain. <Kirk Cyr MD - Last Filed: 07/15/23 04:01> Related Data Home Medications: Home Medications Medication Instructions Recorded Confirmed vitamins no.144-folic 400 mcg PO DAILY 01/13/20 02/04/20 acid 400 mcg chewable tablet () <Amanda Gunn PA-C - Last Filed: 07/13/23 17:34> Allergies/Adverse Reactions: Allergies Allergy/AdvReac Type Severity Reaction Status Date / Time No Known Allergies Allergy Verified 07/13/23 15:28 <Amanda Gunn PA-C - Last Filed: 07/13/23 17:34> Review of Systems Review of Systems: All systems reviewed & are unremarkable except as noted in HPI and below <Kirk Cyr MD - Last Filed: 07/15/23 04:01> PMFSH Past Medical History Medical History: Medical History (Updated 07/14/23 @ 00:03 by Pau Francois) Gestational HTN Patient denies medical problems <Amanda Gunn PA-C - Last Filed: 07/13/23 17:34> Surgical History Surgical History: Surgical History (System 02/03/20 @ 12:56 by Aline Dixon) No significant past surgical history <Amanda Gunn PA-C - Last Filed: 07/13/23 17:34> Family History Family History: Family History (System 02/03/20 @ 12:56 by Aline Dixon) Mother Bronchitis Asthma <Amanda Gunn PA-C - Last Filed: 07/13/23 17:34> Social History Social History: Social History (System 02/03/20 @ 12:56 by Aline Dixon) Smoking status: Never smoker Substance use: never Gender identity (if verbalized by the patient): Female Spiritual care concerns: No <Amanda Gunn PA-C - Last Filed: 07/13/23 17:34> Exam Narrative: APPEARANCE: Well appearing, no pain, no distress, well-nourished. HEAD: normocephalic, atraumatic. EYES: PERRLA/EOMI,
[2023-07-13] MEDS: ASPIRIN 81 MG CHEWABLE TABLET 324 MG PO (16:27)
--- NOTE | 2023-07-13 16:28 | PC.NURSE ---
Pt took 81mg ASA prior to arrival to ED.
[2023-07-13 16:33] LABS: Basophils Absolute Auto 0.1 K/mm3 (0.0-0.1); Basophils Percent Auto 0.4 % (0.2-1.2); Eosinophils Absolute Auto 0.1 K/mm3 (0-0.3); Eosinophils Percent Auto 0.6 % (0-4.4); Hematocrit 35.4 % (37.0-47.0); Hemoglobin 11.3 g/dL (12.0-15.0); Immature Granulocyte Absolute 0.07 K/mm3 (0.00-0.031); Immature Granulocyte Percent A 0.5 % (0-0.5); Lymphocytes Percent Auto 19.6 % (18.3-44.2); Mean Corpuscular HGB Conc 31.9 g/dl (32-36); Mean Corpuscular Hemoglobin 28.8 pg (26-34); Mean Corpuscular Volume 90.3 fl (80-100); Mean Platelet Volume 12.2 fl (7.4-10.4); Monocytes Absolute Auto 0.9 K/mm3 (0.1-0.6); Monocytes Percent Auto 6.6 % (2.6-8.5); Neutrophils Absolute Auto 9.9 K/mm3 (1.3-6.7); Neutrophils Percent Auto 72.3 % (45.5-73.1); Platelet Count Result 236 k/mm3 (150-375); Red Blood Count 3.92 M/mm3 (4.2-5.4); Red Cell Distribution Width 13.3 % (11.5-14.5); White Blood Count 13.8 K/mm3 (4.5-10.0)
[2023-07-13 16:44] LABS: INR 0.9; Prothrombin Time 12.9 Seconds (11.1-14.7)
[2023-07-13 16:45] LABS: Partial Thromboplastin Time 30.2 Seconds (22.3-36.8)
[2023-07-13 16:47] LABS: Alanine Aminotransferase 12 U/L (6-35); Albumin Level 3.8 g/dL (3.5-5.1); Alkaline Phosphatase 79 U/L (38-126); Anion Gap 2 mmol/L (8-16); Aspartate Amino Transferase 22 U/L (14-36); Bilirubin,Total 0.3 mg/dL (0.2-1.3); Blood Urea Nitrogen 4 mg/dL (7-17); Calcium 9.2 mg/dL (8.4-10.2); Carbon Dioxide 25 mmol/L (22-30); Chloride 109 mmol/L (98-107); Estimated CRCL calculation 240 ml/min; Estimated Glomerular Filt Rate > 60; Glucose 92 mg/dL (65-110); Lipase 73 U/L (23-300); Potassium 3.6 mmol/L (3.4-5.0); Sodium 136 mmol/L (137-145)
[2023-07-13 16:58] LABS: Troponin I < 0.012 ng/mL (0.000-0.034)
[2023-07-13 17:21] LABS: D Dimer 1.57 ug/mL (<0.48)
[2023-07-13 18:41] LABS: NT Pro B Type Natriuretic Pept < 20 pg/mL (19.9-100)
[2023-07-13 19:36] VITALS: BP 133/72; PULSE 89; RESP 17; O2SAT 100
--- NOTE | 2023-07-13 19:41 | PC.NURSE ---
Pt to xray at this time.
[2023-07-13 20:15] LABS: Troponin I < 0.012 ng/mL (0.000-0.034)
[2023-07-13 22:06] VITALS: BP 136/78; PULSE 89; RESP 20; O2SAT 100
== END 2023-07-13 22:20 | disposition home or self-care (01) ==
PROVIDERS: Physician Assistant; Emergency Provider Emergency Medicine
DX: O26.892 Other specified pregnancy related conditions, second trimester (principal); R07.2 Precordial pain; O99.212 Obesity complicating pregnancy, second trimester; E66.01 Morbid (severe) obesity due to excess calories; Z3A.00 Weeks of gestation of pregnancy not specified; R94.31 Abnormal electrocardiogram [ECG] [EKG]
CPT/HCPCS: 36415; 71046; 71275; 80053; 83690; 83880; 84484; 85025; 85380; 85610; 85730; 93005; 99284; A9270; Q9967

== ENCOUNTER 2023-08-03 09:14 | Outpatient (CLI) | payer OTHER, SELFPAY ==
--- NOTE | ~2023-08-03 | US_ITS ---
EXAMINATION: US abdomen limited DATE: 08/03/2023 10:34 INDICATION: Abdominal pain in . Second trimester. TECHNIQUE: Multiple grayscale and Doppler ultrasound images of the abdomen were obtained. COMPARISON: None FINDINGS: The visualized portions of the head, body, and tail of the pancreas are normal. The liver i s normal without focal lesion. There is normal flow in main portal vein. The gallbladder is normal in size. No gallstones or gallbladder wall thickening. There was no sonographic Best sign. The common duct is normal and measures 2 mm. IMPRESSION: 1. Normal right upper quadrant ultrasound. Reviewed, dictated and finalized at location A.
== END 2023-08-03 09:15 | disposition home or self-care (01) ==
PROVIDERS: Visit Provider Advanced Practice Midwife
DX: R10.9 Unspecified abdominal pain (principal)
CPT/HCPCS: 76705

== ENCOUNTER 2023-10-23 18:11 | Outpatient (CLI) | payer OTHER, SELFPAY ==
[2023-10-23 19:16] VITALS: BP 127/79; PULSE 79
[2023-10-23 19:26] LABS: Basophils Percent Auto 0.2 % (0.2-1.2); Eosinophils Percent Auto 0.3 % (0-4.4); Hematocrit 31.1 % (37.0-47.0); Hemoglobin 10.2 g/dL (12.0-15.0); Immature Granulocyte Absolute 0.06 K/mm3 (0.00-0.031); Immature Granulocyte Percent A 0.6 % (0-0.5); Immature Platelet Fraction Pct 15.7 % (0.9-11.2); Lymphocytes Absolute Auto 2.17 K/mm3 (0.9-3.2); Lymphocytes Percent Auto 20.3 % (18.3-44.2); Mean Corpuscular HGB Conc 32.8 g/dl (32-36); Mean Corpuscular Volume 85.4 fl (80-100); Mean Platelet Volume 13.1 fl (7.4-10.4); Monocytes Absolute Auto 0.8 K/mm3 (0.1-0.6); Monocytes Percent Auto 7.4 % (2.6-8.5); Neutrophils Absolute Auto 7.6 K/mm3 (1.3-6.7); Neutrophils Percent Auto 71.2 % (45.5-73.1); Platelet Count Result 168 k/mm3 (150-375); Red Blood Count 3.64 M/mm3 (4.2-5.4); Red Cell Distribution Width 15.1 % (11.5-14.5); White Blood Count 10.7 K/mm3 (4.5-10.0)
[2023-10-23 19:31] VITALS: BP 135/78; PULSE 77
[2023-10-23 19:33] LABS: Alanine Aminotransferase 10 U/L (6-35); Albumin Level 3.2 g/dL (3.5-5.1); Alkaline Phosphatase 143 U/L (38-126); Anion Gap 7 mmol/L (4-12); Aspartate Amino Transferase 20 U/L (14-36); Bilirubin,Total 0.8 mg/dL (0.2-1.3); Calcium 8.9 mg/dL (8.4-10.2); Carbon Dioxide 19 mmol/L (22-30); Chloride 110 mmol/L (98-107); Estimated Glomerular Filt Rate > 60; Glucose 83 mg/dL (65-110); Potassium 3.2 mmol/L (3.4-5.0); Sodium 136 mmol/L (137-145); Uric Acid 4.7 mg/dL (2.5-7.5)
[2023-10-23 19:41] LABS: Creatinine Urine 234.6 mg/dL; Total Protein Urine Random 14 mg/dL; Ur Ttl Prot Creatinine Ratio 0.06 mg/mg (0-0.20)
[2023-10-23 19:46] VITALS: BP 114/50; PULSE 88
[2023-10-23 20:00] LABS: Anisocytosis 2+; Platelet Estimate Adequate (Adequate); Schistocytes None Seen
[2023-10-23 20:01] VITALS: BP 112/66; PULSE 83
--- NOTE | 2023-10-23 20:02 | PC.NURSE ---
Dr Fabian informed of adm c/o of headache and elevated BP's at home. Informed of lab results and current BP's, orders obtained.
[2023-10-23 20:05] LABS: Blood Urea Nitrogen < 2 mg/dL (7-17)
[2023-10-23] MEDS: ACETAMINOPHEN/BUTALBITAL/CAFFEINE 325-50-40 MG TABLET (FIORICET) 1 TAB PO (20:16)
[2023-10-23 20:21] LABS: Appearance Urine Cloudy (Clear); Bacteria Urine 4+ /hpf; Bilirubin Urine Negative (Negative); Blood Urine Negative (Negative); Color Urine Dark Yellow (Yellow); Glucose Urine UA Negative (Negative); Ketones Urine 2+ mg/dL (Negative); Leukocyte Esterase Ur 3+ LEU/UL (Negative); Mucus Urine Present /lpf; Need Manual Microscopic Reviewed; Nitrate Urine Negative (Negative); Non Pathogenic Casts 0-2; Protein Urine 1+ mg/dL (Negative); RBC Urine 0-2 /hpf (0-2); Specific Grav Ur 1.017 (1.001-1.035); Squamous Epithelial Cell Urine Many /hpf (Few); WBC Urine 21-50 /hpf (0-3)
[2023-10-23 20:29] LABS: Add Urine Microscopic? YES
--- NOTE | 2023-10-23 21:19 | PC.NURSE ---
Dr Fabian notified that headache is better was rating pain an 8, now down to a 3. Patient is comfortable going home. Discharge order obtained.
== END 2023-10-23 21:25 | disposition home or self-care (01) ==
LOC: ANHOBOP 18:58 → ANHLDR 19:03
PROVIDERS: Visit Provider Obstetrics & Gynecology
DX: O13.9 Gestational [pregnancy-induced] hypertension without significant proteinuria, unspecified trimester (principal); R51.9 Headache, unspecified; Z3A.00 Weeks of gestation of pregnancy not specified
CPT/HCPCS: 36415; 59025; 80053; 81001; 82570; 84156; 84550; 85025; 85055; 87086; 99199; A9270

== ENCOUNTER 2023-10-28 15:47 | Observation (INO) | payer OTHER, SELFPAY ==
--- NOTE | 2023-10-28 15:47 | OBADM ---
This patient, Maile Szymanski, admitted to the OB room Labor/Delivery/Recovery 106 for observation. Patient/family oriented to hospital policies and general routines including ID bracelet, bed and alarms, visiting hours, pain management, procedures, bathroom and other care routines, personal items, smoking policy, room service/diet, and visiting hours. Patient/Family are encouraged to report perceived risks to care and to ask questions if they do not understand what they are told or what they should do.
[2023-10-28 17:49] VITALS: BMI 47.3
--- NOTE | 2023-11-03 10:07 | PM.OBTRLD ---
OB - Triage/Final Diagnosis Visit Information Comments/Additional reasons for admission: I have assessed the risk for this patient, Maile Szymanski, and determined that she would benefit from observation care. Final Diagnosis (1) Uterine contractions during : Code(s): O47.9 - False labor, unspecified Status: Acute
== END 2023-10-28 17:55 | disposition home or self-care (01) ==
PROVIDERS: Admitting Provider Obstetrics & Gynecology; Visit Provider Obstetrics & Gynecology
DX: O47.1 False labor at or after 37 completed weeks of gestation (principal); Z3A.38 38 weeks gestation of pregnancy
CPT/HCPCS: G0378; G0379

== ENCOUNTER 2023-10-29 04:05 | Inpatient (IN) | payer OTHER, SELFPAY ==
[2023-10-29] VITALS (153 sets, daily range): BP systolic 88–212; BP diastolic 40–174; PULSE 74–154; RESP 14–16; TEMP 36.2–36.8; O2SAT 89–100; BMI 46.8
[2023-10-29] MEDS: LACTATED RINGERS 1,000 ML 125 ML IV CONT ×2 (06:20→07:43)
[2023-10-29] MEDS: fentaNYL CITRATE INJ (*CRX) 100 MCG/2 ML VIAL IV PUSH (06:23)
[2023-10-29 06:25] LABS: Basophils Percent Auto 0.3 % (0.2-1.2); Eosinophils Percent Auto 0.2 % (0-4.4); Hematocrit 31.5 % (37.0-47.0); Hemoglobin 10.3 g/dL (12.0-15.0); Immature Granulocyte Absolute 0.05 K/mm3 (0.00-0.031); Immature Granulocyte Percent A 0.4 % (0-0.5); Immature Platelet Fraction Pct 16.2 % (0.9-11.2); Lymphocytes Absolute Auto 2.74 K/mm3 (0.9-3.2); Lymphocytes Percent Auto 23.7 % (18.3-44.2); Mean Corpuscular HGB Conc 32.7 g/dl (32-36); Mean Corpuscular Hemoglobin 28.2 pg (26-34); Mean Corpuscular Volume 86.3 fl (80-100); Mean Platelet Volume 13.5 fl (7.4-10.4); Monocytes Absolute Auto 0.9 K/mm3 (0.1-0.6); Monocytes Percent Auto 7.4 % (2.6-8.5); Neutrophils Absolute Auto 7.9 K/mm3 (1.3-6.7); Platelet Count Result 177 k/mm3 (150-375); Red Blood Count 3.65 M/mm3 (4.2-5.4); Red Cell Distribution Width 15.8 % (11.5-14.5); White Blood Count 11.5 K/mm3 (4.5-10.0)
--- NOTE | 2023-10-29 07:07 | WPDANESEPP ---
Anes - Eval Pre Procedure Procedure: labor epidural Date/Time: 10/29/23 07:07 Surgeon: tereza Chapa Preop Diagnosis: Pain during labor Pre Op Diagnosis: Contractions Patient Data Age: 22 Gender: F Height: 1.68 m Weight: 131.73 kg Last Vital Signs Pulse 87 10/29/23 07:00 BP 130/83 10/29/23 07:00 O2 Del Method Room Air 10/29/23 06:11 Allergies Allergy/AdvReac Type Severity Reaction Status Date / Time No Known Allergies Allergy Verified 07/13/23 15:28 Home Medications Medication Instructions Recorded Confirmed Type vitamins no.144-folic 400 mcg PO DAILY 01/13/20 10/29/23 History acid 400 mcg chewable tablet () Laboratory Tests 10/29/23 06:13 WBC 11.5 H K/mm3 (4.5-10.0) RBC 3.65 L M/mm3 (4.2-5.4) Hgb 10.3 L g/dL (12.0-15.0) Hct 31.5 L % (37.0-47.0) MCV 86.3 fl (80-100) MCH 28.2 pg (26-34) MCHC 32.7 g/dl (32-36) RDW 15.8 H % (11.5-14.5) Plt Count 177 k/mm3 (150-375) MPV 13.5 H fl (7.4-10.4) Immature Gran % (Auto) 0.4 % (0-0.5) Neut % (Auto) 68.0 % (45.5-73.1) Lymph % (Auto) 23.7 % (18.3-44.2) [place] % (Auto) 7.4 % (2.6-8.5) Eos % (Auto) 0.2 % (0-4.4) Baso % (Auto) 0.3 % (0.2-1.2) Lymph # (Auto) 2.74 K/mm3 (0.9-3.2) [place] # (Auto) 0.9 H K/mm3 (0.1-0.6) Eos # (Auto) 0.0 K/mm3 (0-0.3) Baso # (Auto) 0.0 K/mm3 (0.0-0.1) Abs Immat Gran (auto) 0.05 H K/mm3 (0.00-0.031) Absolute Neuts (auto) 7.9 H K/mm3 (1.3-6.7) Absolute Nucleated RBC 0.000 K/mm3 (0.0-0.012) Nucleated RBC % 0.0 % (0.0-0.2) % Immature Plt Fraction 16.2 H % (0.9-11.2) RPR Pending HIV 1&2 Ab/P24 Ag 4thGn Pending Blood Type O Positive Antibody Screen Pending Patient hx anesthesia problems: none Family hx anesthesia problems: none Results Review: All pre-operative results and documents have been reviewed as part of the pre-operative evaluation. PMFSH Past Medical History Medical History Gestational HTN Patient denies medical problems Surgical History Surgical History No significant past surgical history Family History Family History Mother Bronchitis Asthma Social History Social History Smoking status: Never smoker Substance use: never Do You Feel Safe in your Home?: Yes Lack of Transportation: No Lack of Food: Never True Current Housing: I Have Housing Concerned About Future Housing: No Difficulty Paying Gas/Electric Bills: No Difficulty Paying for Meds: No Currently Unemployed: No Education: Trade/Vocational Certificate Difficulty w/ Childcare or Family Care: No Gender identity (if verbalized by the patient): Female Spiritual care concerns: No Exam Day of Procedure 10/29/23 07:07 Patient weight: morbidly obese Heart: regular rate and rhythm Lungs: normal air movement Airway: Mallampati scale class II Neurological: alert and oriented
--- NOTE | 2023-10-29 07:15 | WPDOBADMIT ---
Obstetrics - Admit Note Admission Note: record reviewed. No pertinent additions to the history and/or any subsequent changes in the physical findings that are not consistent with the expected course of the were found. Additions to the history and/or subsequent changes in the physical findings follow. Admit in labor, complicated by obesity, anticipate vaginal delivery
[2023-10-29 07:18] LABS: HIV 1/2 Ab P24 Ag Result Negative (Negative)
[2023-10-29] MEDS: ONDANSETRON INJ 4 MG/2 ML VIAL IV PUSH (07:44)
[2023-10-29] MEDS: OXYTOCIN 30 UNITS/NS 500 ML 30 UNITS/500 ML BAG IV CONT (09:11)
--- NOTE | 2023-10-29 11:32 | PM.OBPRVD ---
OB - Vaginal Delivery Note Procedure Delivery date: 10/29/23 Induction method: None Delivery augmentation: Rupture of Membranes and Pitocin Delivery monitor: External FHT and External Uterine Route of delivery: Episiotomy description: None Laceration Description: None Specimen: No Quantitative Blood Loss (ml): 80 Anesthesia type: Epidural Disposition: Floor Complications: No immediate complications Baby Date of : 10/29/23 Time of : 11:23 Weeks of gestation at delivery: 38 Infant gender: Female presentation: vertex position: Left Occiput Anterior Placenta delivery description: Spontaneous Cord Vessel Description: 3 Vessels, Clamped/Cut and Delayed Cord Clamping score one minute: 8 score five minutes: 9 Narrative: mother and baby skin to skin in stable condition
[2023-10-29] MEDS: OXYTOCIN 30 UNITS/NS 500 ML 30 UNITS/500 ML BAG 125 UNITS IV CONT (11:59)
[2023-10-29] MEDS: WITCH HAZEL 40 PADS 1 PAD TOPICAL (14:20)
[2023-10-29] MEDS: BENZOCAINE 20% AER SPR (*SP) 56 GM CAN 1 SPRAY TOPICAL (14:20)
[2023-10-29] MEDS: IBUPROFEN 600 MG TABLET PO ×2 (15:54→23:55)
--- NOTE | 2023-10-29 16:21 | OBPPTRN ---
1441 Patient transferred to post room #284 via W/C. Support person present. Oriented to unit, room, information board, rooming in, admission packet and security measures. Patient verbalizes understanding.
[2023-10-29] MEDS: ACETAMINOPHEN 325 MG TABLET 650 MG PO (19:11)
[2023-10-30 03:30] VITALS: BP 129/88
[2023-10-30 04:33] LABS: Hematocrit 28.4 % (37.0-47.0)
[2023-10-30 07:05] VITALS: BP 145/77; PULSE 86; RESP 18; TEMP 37; O2SAT 100
[2023-10-30] MEDS: IBUPROFEN 600 MG TABLET PO ×2 (07:05→17:02)
[2023-10-30] MEDS: MULTIVIT/MIN/PREN/FOL AC/IRON TABLET 1 TAB PO (08:55)
[2023-10-30] MEDS: POLYSACCHARIDE IRON COMPLEX 150 MG CAPSULE PO ×2 (08:55→17:02)
[2023-10-30] MEDS: DOCUSATE SODIUM 100 MG CAPSULE PO ×2 (08:55→17:02)
--- NOTE | 2023-10-30 10:56 | PM.OBPNVD ---
OB - PN: Subj Subjective Date/time seen: 10/30/23 10:56 Interval history: Doing well, PPD#1 s/p Pain controlled Formula feeding Ready for discharge home OB - PN: Obj Data Labs 10/30/23 03:40 Labs: Laboratory Results - last 24 hr 10/30/23 03:40 Hgb 9.0 L Hct 28.4 L OB - PN A/P Plan day: 1 Plan: routine care, discharge home and follow up 6 weeks Time Spent With Patient Time: Total time spent is greater than 50% in coordination of care (as documented) at patient's floor/unit and/or counseling patient: Review of Systems Review of Systems: All systems reviewed & are unremarkable except as noted in HPI and below Exam Const: General: comfortable and no acute distress Orientation/consciousness: patient oriented x3 Resp: Effort & Inspection: normal respiratory effort
--- NOTE | 2023-10-30 10:58 | PM.OBDSVD ---
DS: Admitting Diagnosis Discharge Date 10/30/23 Admitting Diagnosis labor DS: Discharge Diagnosis Discharge Diagnosis (1) (spontaneous vaginal delivery): Code(s): O80 - Encounter for full-term uncomplicated delivery Status: Acute OB - DS: Summary OB Procedures : None OB Procedures Intrapartum: Spontaneous Vag Delivery OB Procedures: : None Peripartum Data Laceration Description: None Episiotomy description: None Time Spent with Patient Time attestation: Total time spent providing and/or coordinating discharge services: DS: Data Data Completed and Pending Labs on day of discharge: Labs from last 24 hours 10/30/23 03:40 Hgb 9.0 L Hct 28.4 L Discharge Plan Discharge Attending physician on discharge: Jairo Harvey Discharging Clinician: Jairo Harvey Patient Disposition: Home, Self-Care Activity: may shower, as tolerated and pelvic rest Diet: as tolerated Patient Instructions: Antibiotic Form Stand Alone Forms: General Discharge Information Follow-up/Referrals: Nova Chapa CNM [Certified Nurse Principle Software Engineer] - 5 Weeks Discharge Medications: New ibuprofen 600 mg Tablet 600 mg PO Q6H PRN (Reason: Cramping) Qty: 30 0RF docusate sodium 100 mg Capsule 100 mg PO BID PRN (Reason: Constipation) Qty: 60 0RF Continued 400 mcg Tablet,Chewable 400 mcg PO DAILY Date of admission: 10/29/23 04:05 Primary Care Provider: PHYSICIAN,CELLAR HAND Admitting Provider: Jairo Harvey Attending physician on admission: Nova Chapa Condition: Stable
[2023-10-30] MEDS: ACETAMINOPHEN 325 MG TABLET 650 MG PO ×2 (12:08→19:54)
[2023-10-30 12:10] VITALS: BP 136/90; PULSE 83; RESP 18; O2SAT 100
--- NOTE | 2023-10-30 14:43 | WPDANLDPN2 ---
Anes-Prog Note L&D Date/Time: 10/30/23 14:43 Comfortable throughout: labor and delivery Neuraxial method: epidural Epidural/Spinal procedure site: tender Neuro status: Neuro function grossly intact. Cardiovascular status: normal Respiratory status: normal Airway patency: baseline Mental status: baseline Post-Op hydration status: normal Vital Signs: Last Vital Signs Temp 37.0 C 10/30/23 07:05 Pulse 83 10/30/23 12:10 Resp 18 10/30/23 12:10 BP 136/90 10/30/23 12:10 Pulse Ox 100 10/30/23 12:10 O2 Del Method Room Air 10/30/23 07:05 Pain score (VAS): 2/10 I/O: Intake & Output 10/29/23 10/30/23 10/30/23 23:59 07:59 15:59 Intake Total 1100 1030 Output Total 400 1200 500 Balance -400 -100 530 Post-procedural complaints: none Patient feedback: Patient satisfied with anesthetic care.
[2023-10-30 16:00] VITALS: BP 139/84; PULSE 88; RESP 18; O2SAT 99
[2023-10-30 19:09] LABS: Rapid Plasma Reagin Non-Reactive (NonReactive)
[2023-10-30 19:40] VITALS: BP 121/76; PULSE 99; RESP 16; TEMP 37.1; O2SAT 100
[2023-10-30 22:30] VITALS: BP 125/79; PULSE 82; RESP 16; TEMP 36.7; O2SAT 100
[2023-10-31] MEDS: ACETAMINOPHEN 325 MG TABLET 650 MG PO ×2 (04:40→10:19)
[2023-10-31] MEDS: IBUPROFEN 600 MG TABLET PO ×2 (04:40→10:19)
[2023-10-31 05:00] VITALS: BP 126/81; PULSE 78; RESP 16; TEMP 36.6; O2SAT 100
[2023-10-31 08:40] VITALS: BP 126/66; PULSE 79; RESP 18; TEMP 36.7
--- NOTE | 2023-10-31 08:50 | PM.OBPNVD ---
OB - PN: Subj Subjective Date/time seen: 10/31/23 08:50 Interval history: Doing well, PPD#2 s/p Pain controlled, emptying bladder without issue Formula feeding Ready for discharge home, baby monitored for bilirubin yesterday OB - PN: Obj Data Labs 10/30/23 03:40 Labs: Laboratory Results - last 24 hr 10/29/23 06:13 RPR Non-reactive OB - PN A/P Plan day: 2 Plan: routine care and discharge home Time Spent With Patient Time: Total time spent is greater than 50% in coordination of care (as documented) at patient's floor/unit and/or counseling patient: Review of Systems Review of Systems: All systems reviewed & are unremarkable except as noted in HPI and below Exam Const: General: comfortable and no acute distress Orientation/consciousness: patient oriented x3 Resp: Effort & Inspection: normal respiratory effort
[2023-10-31] MEDS: POLYSACCHARIDE IRON COMPLEX 150 MG CAPSULE PO (10:12)
[2023-10-31] MEDS: DOCUSATE SODIUM 100 MG CAPSULE PO (10:12)
[2023-11-01 08:18] VITALS: BP 134/71; PULSE 81; RESP 18; TEMP 36.7; O2SAT 99
== END 2023-10-31 11:36 | disposition home or self-care (01) | DRG 560 ==
LOC: ANHLDR 06:12 → ANHOB2 10-30 10:49 → ANHLDR 11-01 10:37
PROVIDERS: Advanced Practice Midwife; Admitting Provider Obstetrics & Gynecology; Visit Provider Obstetrics & Gynecology
DX: O77.0 Labor and delivery complicated by meconium in amniotic fluid (principal); Z37.0 Single live birth; Z3A.38 38 weeks gestation of pregnancy; O99.214 Obesity complicating childbirth; E66.01 Morbid (severe) obesity due to excess calories
CPT/HCPCS: 36415; 85014; 85018; 85025; 85055; 86592; 86703; 86850; 86900; 86901; A9270; G0432; J2405; J2590; J2795; J3010; J7120